=== PATIENT | male | born 1990 | race Asian ===

== ENCOUNTER 2017-01-30 23:51 | Emergency (ER) | payer MEDICAID ==
[2017-01-31] MEDS ORDERED: Ketorolac 60 MG/2 ML SDV IM ONE (00:03)
--- NOTE | 2017-01-31 00:07 | EDM.PDOC ---
ED HPI GENERAL MEDICAL PROBLEM - General Stated Complaint: INJURY TO HAND PUNCHED WALL Time Seen by Provider: 01/30/17 23:55 Source of Information: Reports: Patient, Family (friend) History Limitations: Reports: No Limitations - History of Present Illness INITIAL COMMENTS - FREE TEXT/NARRATIVE: 26 y.o.w.m came to the ed after he punched a wall out of anger. Pt came to the ed with pain and swelling of his right hand dorsal aspect. Pt has no loss of function of his hand, but it hurts to make a fist. Pt denies any other acute medical issues, no N/V/D or dizziness. Pt denies drug use. BP 125/85 Pulse 105 Temp 36.8 Onset: Today Onset Date: 01/30/17 Onset Time: 23:10 Duration: Minutes:, Constant, Intermittent Location: Reports: Upper Extremity, Right Quality: Reports: Ache Severity: Mild Improves with: Reports: Rest Worsens with: Reports: Movement Context: Reports: Trauma (boxing against a wall) Associated Symptoms: Reports: No Other Symptoms right hand Pain Score (Numeric/FACES): 7 - Related Data Allergies Allergy/AdvReac Type Severity Reaction Status Date / Time acetaminophen [From Tylenol] Allergy Nausea and Verified 01/31/17 01:53 Vomiting Home Meds: Home Meds NK [No Known Home Meds] 09/12/15 [History] Past Medical History - Past Health History Medical/Surgical History: Denies Medical/Surgical History - Past Surgical History Musculoskeletal Surgical History: Reports: Other (See Below) Social & Family History - Family History Family Medical History: Noncontributory - Tobacco Use Smoking Status *Q: Current Every Day Smoker Years of Tobacco use: 10 Packs/Tins Daily: 1 - Recreational Drug Use Recreational Drug Type: Reports: Marijuana/Hashish - Living Situation & Occupation Living situation: Reports: Single Review of Systems - Review of Systems Review Of Systems: See Below Constitutional: Reports: No Symptoms Eyes: Reports: No Symptoms Ears: Reports: No Symptoms Nose: Reports: No Symptoms Mouth/Throat: Reports: No Symptoms Respiratory: Reports: No Symptoms Cardiovascular: Reports: No Symptoms GI/Abdominal: Reports: No Symptoms Genitourinary: Reports: No Symptoms Musculoskeletal: Reports: Hand Pain Skin: Reports: No Symptoms Neurological: Reports: No Symptoms Psychiatric: Reports: No Symptoms ED EXAM, GENERAL - Physical Exam Exam: See Below Exam Limited By: No Limitations General Appearance: Alert, WD/WN, Mild Distress Eye Exam: Bilateral Eye: Abnormal EOM Ears: Normal External Exam Ear Exam: Bilateral Ear: Auricle Normal Nose: Normal Inspection Throat/Mouth: Normal Inspection Head: Atraumatic, Normocephalic Neck: Normal Inspection, Supple, Non-Tender Respiratory/Chest: No Respiratory Distress, Lungs Clear Cardiovascular: Normal Peripheral Pulses, Regular Rate, Rhythm, No Edema, No Gallop Peripheral Pulses: 1+: Femoral (L), Femoral (R) GI/Abdominal: Normal Bowel Sounds, Soft (Male) Exam: Deferred Rectal (Males) Exam: Deferred Back Exam: Normal Inspection Extremities: Normal Capillary Refill, Other (R hand pain, abrasion R 4/5 finger , swollen r hand, dorsal aspect) Neurological: Alert, Oriented, CN II-XII Intact, Normal Cognition, Normal Gait, No Motor/Sensory Deficits Psychiatric: Normal Affect, Normal Mood Skin Exam: Warm, Dry, Other (abrasion 4/5 th finger) Lymphatic: No Adenopathy Course - Vital Signs Text/Narrative:: 26 y.o.w.m came to the ed after he punched a wall out of anger. Pt came to the ed with pain and swelling of his right hand dorsal aspect. Pt has no loss of function of his hand, but it hurts to make a fist. Pt denies any other acute medical issues, no N/V/D or dizziness. Pt denies drug use. BP 125/85 Pulse 105 Temp 36.8 PE: WNWD WM NAD,r hand minor abrasions 4+5th fingers, No loss of function Imaging: Poss nondisplace Fx 5th MCP, official report is pending Impression: Boxer fx right 5th MCP of hand, No loss of functin Tx: Toradol, ICE, valcro splint Reexam: Improved Pllan: D/C with instructions Addendum: Dr Key, radiologist looled at the X rays stating, there is no new Fx at his right Hand FNavya Vandana 01/31/2017 Last Recorded V/S: Last Vital Signs Temp 36.9 C 01/31/17 00:05 Pulse 107 H 01/31/17 00:05 Resp 16 01/31/17 00:05 BP 125/84 01/31/17 00:05 Pulse Ox 99 01/31/17 00:05 - Orders/Labs/Meds Orders: Active Orders 24 hr Category Date Time Status Hand Comp Min 3V Rt [CR] Stat Exams 01/31/17 00:03 Taken Ice Bag [Ice Therapy] [OM.PC] Routine Oth 01/31/17 00:03 Ordered Meds: Medications Discontinued Medications Generic Name Dose Route Start Last Admin Trade Name Freq PRN Reason Stop Dose Admin Ketorolac Tromethamine 60 mg 01/31/17 00:03 Toradol IM 01/31/17 00:04 ONETIME ONE Departure - Departure Time of Disposition: : Disposition: Home, Self-Care 01 Condition: Good Clinical Impression: Boxer's fracture Qualifiers: Encounter type: initial encounter Fracture type: closed Qualified Code(s): S62.339A - Displaced fracture of neck of unspecified metacarpal bone, initial encounter for closed fracture - Discharge Information Instructions: Boxer's Fracture Referrals: PCP,None [Primary Care Provider] - Forms: ED Department Discharge, ED Return to Work/School Form Additional Instructions: ICE, REST and elevation, please take Motrin for pain, wear splint, please f/u, come back it your symptoms get worse acutely - My Orders Last 24 Hours: My Active Orders 01/31/17 00:03 Hand Comp Min 3V Rt [CR] Stat Ice Bag [Ice Therapy] [OM.PC] Routine - Assessment/Plan Last 24 Hours: My Active Orders 01/31/17 00:03 Hand Comp Min 3V Rt [CR] Stat Ice Bag [Ice Therapy] [OM.PC] Routine
[2017-01-31 01:53] VITALS: BP 125/84
--- NOTE | 2017-01-31 10:53 | CR ---
INDICATION: Trauma, boxing a wall. RIGHT HAND: Three views of the right hand revealed no evidence of an acute fracture or dislocation. There is deformity at the DIP joint of the 4th finger, compatible with posttraumatic osteoarthritis - a previous fracture site at the distal phalanx, proximal metaphysis, which has healed. There also is an ununited chip fracture fragment at the proximal metaphysis of the middle phalanx anterolaterally, which is at the PIP joint. This appears to be an old chip fracture fragment that did not unite. No other bone or joint abnormality was identified. IMPRESSION: No acute fracture or dislocation. Report was called to Dr. Ross at 1006 hours, 01/31/2017. [facility]
== END 2017-01-31 01:18 | disposition home or self-care (01) ==
LOC: FB.ED 23:51
DX: S62.336A Displaced fracture of neck of fifth metacarpal bone, right hand, initial encounter for closed fracture (principal); S60.414A Abrasion of right ring finger, initial encounter; S60.416A Abrasion of right little finger, initial encounter; W22.01XA Walked into wall, initial encounter; F17.210 Nicotine dependence, cigarettes, uncomplicated; Z88.6 Allergy status to analgesic agent
CPT/HCPCS: 29125; 73130-RT; 99283